=== PATIENT | female | born 1975 | race Hispanic/Latino ===

== ENCOUNTER 2022-12-22 08:23 | Day surgery (SDC) | payer BC ==
[2022-12-21 10:22] VITALS: BMI 23.1
[2022-12-22] MEDS ORDERED: Oxymetazoline HCl 0.05% (30 ML BOT) ONE (10:00)
[2022-12-22] MEDS ORDERED: Lidocaine 1% (PF) 30 ML VIAL ONE (10:22)
[2022-12-22] MEDS ORDERED: EPINEPHrine 1 MG/ML AMP ONE (10:22)
[2022-12-22] MEDS ORDERED: Famotidine/PF 20 mg/2ml Vial ONE (10:35)
[2022-12-22] MEDS ORDERED: SUGAMMADEX SODIUM 200 MG/2 ML VIAL ONE (10:35)
[2022-12-22] MEDS ORDERED: fentaNYL PF 100 MCG/2 ML SYRINGE ONE (10:35)
[2022-12-22] MEDS ORDERED: PROPOFOL 200 MG/20 ML VIAL ONE (11:08)
[2022-12-22] MEDS ORDERED: Rocuronium Bromide 10 MG/ML (10ML VIAL) ONE (11:08)
[2022-12-22] MEDS ORDERED: Ondansetron PF 4 MG/2 ML Vial ONE (11:08)
[2022-12-22] MEDS ORDERED: Metoclopramide HCl 10 MG/2 ML VIAL ONE (11:08)
[2022-12-22] MEDS ORDERED: Dexamethasone 20 MG/5 ML VIAL ONE (11:08)
[2022-12-22] MEDS ORDERED: Lidocaine 1% PF 5 ML VIAL ONE (11:08)
[2022-12-22] MEDS ORDERED: Triamcinolone 40 MG/ML VIAL ONE (12:01)
[2022-12-22] MEDS ORDERED: fentaNYL 50 mcg/mL 1 mL Vial ONE (13:01)
[2022-12-22] MEDS ORDERED: Hydrocodone-Acetamin 15 ML UDCUP ONE (13:24)
== END 2022-12-22 13:53 | disposition home or self-care (01) ==
LOC: SDC 08:23
PROVIDERS: ATTEND Specialist
PROC: 09BR0ZZ Excision of Left Maxillary Sinus, Open Approach (ICD-10-PCS; principal; 2022-12-22)
PROC: 09BT8ZZ Excision of Left Frontal Sinus, Via Natural or Artificial Opening Endoscopic (ICD-10-PCS; principal; 2022-12-22)
PROC: 09BL0ZZ Excision of Nasal Turbinate, Open Approach (ICD-10-PCS; principal; 2022-12-22)
PROC: 09TV0ZZ Resection of Left Ethmoid Sinus, Open Approach (ICD-10-PCS; principal; 2022-12-22)
PROC: 09C Ear, Nose, Sinus, Extirpation (ICD-10-PCS; principal; 2022-12-22)
DX: J32.4 Chronic pansinusitis (principal); J34.3 Hypertrophy of nasal turbinates; J33.0 Polyp of nasal cavity; E78.00 Pure hypercholesterolemia, unspecified; I10 Essential (primary) hypertension; F41.9 Anxiety disorder, unspecified; Z79.899 Other long term (current) drug therapy
CPT/HCPCS: 85014; 87070; 87205; 88184; 88307; J0171; J1100; J2001; J2405; J2704; J2765; J3010; J3301; S0028